=== PATIENT | female | born 1945 | race Caucasian/White ===

== ENCOUNTER 2019-03-22 23:44 | Inpatient (IN) | payer MEDICARE ==
[~2019-03-22] VITALS: Ht 154.9 cm; Wt 149.7 kg
[2019-03-22 23:59] VITALS: BP 154/58
[2019-03-23] VITALS (28 sets, daily range): BP systolic 87–168; BP diastolic 29–71
[2019-03-23] MEDS ORDERED: ECOTRIN325 M1 PO (00:03)
[2019-03-23] MEDS ORDERED: NITROGLYCERIN4.9 GM TL (00:05)
[2019-03-23] MEDS ORDERED: IMDUR SA60 M1 PO (00:05)
[2019-03-23] MEDS ORDERED: METOPROLOL SUCC50 M1 PO (00:06)
[2019-03-23] MEDS ORDERED: LISINOPRIL-HCT1 EACH PO (00:06)
[2019-03-23] MEDS ORDERED: OPTIVE 0.5%-0.915 ML OP (00:06)
[2019-03-23] MEDS ORDERED: RANEXA1000 M1 PO (00:07)
[2019-03-23] MEDS ORDERED: FENOFIBRATE54 MG PO (00:07)
[2019-03-23] MEDS ORDERED: PRAVACHOL40 MG PO (00:07)
[2019-03-23 00:09] LABS: BASO # 0.1 10*3/uL (0.0-0.1); BASO % 0.5 % (0.0-1.0); EOS # 0.3 10*3/uL (0.0-0.4); EOS % 2.6 % (1.0-4.0); HEMATOCRIT 35.7 % (37.0-47.0); HEMOGLOBIN 11.3 g/dl (12.0-16.0); LYMPH % 10.2 % (27.0-41.0); MEAN CORPUSCULAR HGB 30.4 pg (27.0-31.0); MEAN CORPUSCULAR HGB CONC 31.7 g/dl (33.0-37.0); MEAN PLATELET VOLUME 10.8 fl (9.6-12.3); MONO # 1.2 10*3/uL (0.1-1.0); MONO % 11.9 % (3.0-9.0); NEUT # 7.5 10*3/uL (2.3-7.9); NEUT % 74.6 % (47.0-73.0); PLATELET COUNT AUTOMATED 237 10*3/uL (130-400); RED BLOOD COUNT 3.72 10*6/uL (4.10-5.10); RED CELL DISTRI WIDTH 13.1 % (0-14.5); WHITE BLOOD COUNT 10.1 10*3/uL (4.8-10.8)
[2019-03-23] MEDS ORDERED: METOPROLOL TART50 M1 PO (00:09)
--- NOTE | 2019-03-23 00:16 | NUR ---
PATIENT HAS INCREASED REDDNESS TO RLE. THE LEG IS HOT TO TOUCH AND HAS +2 PITTING EDEMA BUT NO DRAINAGE IS NOTED. THE PATIENT STATES THAT SHE FELL A WEEK AGO AND HER PCP STATES THIS CAUSED THE ISSUE. THE PATIENT ALSO HAS A DRESSING AND LOKI WRAP TO LEFT LEG FOR LYMPHEDEMA. THE PATIENT REQUESTED THAT THIS WRAP STAY ON AND INTACTED.
[2019-03-23 00:20] LABS: ACT PARTIAL THROMBO TIME 25.4 SECONDS (20.0-32.1); INTERNATIONAL NORM RATIO 0.9 (2.0-3.5)
[2019-03-23 00:27] LABS: ALBUMIN 2.9 gm/dl (3.1-4.5); CREATININE 1.18 mg/dL (0.55-1.02); POTASSIUM 5.1 mmol/L (3.5-5.1); TOTAL PROTEIN 7.1 gm/dL (6.4-8.2)
--- NOTE | 2019-03-23 00:32 | NUR ---
PATIENT PLACED ON BIPAP IN ER PER DOCTORS ORDER. SETTINGS:12/6 BACK UP RATE OF 8 BPM, OXYGEN 40%. PATIENT SAYS THAT IT IS TOLERABLE AND COMFORTABLE AT THE MOMENT.
[2019-03-23 00:34] LABS: TROPONIN I 2.2 ng/ml (<0.045)
--- NOTE | 2019-03-23 00:34 | NUR ---
TROPONIN 2.200 DR[address] ORELLANA AWARE
--- NOTE | 2019-03-23 03:05 | NUR ---
A 73 YEAR OLD FEMALE PATIENT, admitted to [facility], under the services of ALEXSANDER Beasley DO with a diagnosis of MORBID OBESITY, ELEVATED TROPONIN, ACUTE PULMONARY CONGESTION. Chief complaint is SHORTNES OF BREATH AND MILD CHEST DISCOMFORT-2 DAYS Patient arrived via CAT WITH THIS RN from ER. Monitor applied. Initial assessment completed. Vital signs taken and recorded. See assessment for past medical history, medications and allergies. Patient and/or family oriented to unit. [facility] Clothing/patient valuable form completed. [employer]
--- NOTE | 2019-03-23 03:11 | NUR ---
NITRO DRIP TITRATED AT THIS ITME
--- NOTE | 2019-03-23 03:15 | NUR ---
MORPHINE GIVEN PER DRS ORDERS FOR COMPLAINTS OF SUDDEN ONSET OF CHEST DISCOMFORT AND INCREASED SHORTNESS OF BREATH SINCE MOVING FROM ER CART TO ICU BED. RN WILL MONITOR FOR RELIEF OF SYMPTOMS
--- NOTE | 2019-03-23 03:20 | NUR ---
PATIENTS FRIEND GERRY CALLED REGARDING SWEATER, GERRY STATES SHE TOOK [place], SWEATER AND UNDERWEAR HOME TO WASH THEM. PATIENT AWARE
--- NOTE | 2019-03-23 03:22 | NUR ---
NITRO DRIP TITRATED FOR CONTINUED CHEST PAIN
--- NOTE | 2019-03-23 03:27 | NUR ---
[facility] CALLED REGARDING CONSULT, AWAITING CALL BACK
[2019-03-23] MEDS ORDERED: NOVOLOG MIX 70/33 ML SC ×2 (05:42)
[2019-03-23 06:05] LABS: BASO % 0.4 % (0.0-1.0); EOS # 0.2 10*3/uL (0.0-0.4); EOS % 1.6 % (1.0-4.0); HEMATOCRIT 31.8 % (37.0-47.0); LYMPH # 1.4 10*3/uL (1.3-4.4); LYMPH % 14.9 % (27.0-41.0); MEAN CELL VOLUME 95.2 fl (81.0-99.0); MEAN CORPUSCULAR HGB 29.9 pg (27.0-31.0); MEAN CORPUSCULAR HGB CONC 31.4 g/dl (33.0-37.0); MEAN PLATELET VOLUME 11.5 fl (9.6-12.3); MONO # 1.2 10*3/uL (0.1-1.0); NEUT # 6.8 10*3/uL (2.3-7.9); NEUT % 70.8 % (47.0-73.0); PLATELET COUNT AUTOMATED 242 10*3/uL (130-400); RED BLOOD COUNT 3.34 10*6/uL (4.10-5.10); RED CELL DISTRI WIDTH 13.1 % (0-14.5); WHITE BLOOD COUNT 9.6 10*3/uL (4.8-10.8)
--- NOTE | 2019-03-23 06:07 | NUR ---
CALL OUT TO [facility] REGARDING CONSULT, STATE THAT THEY WILL PLACE PAGE OUT AGAIN AND SOMEONE WILL RETURN CALL
[2019-03-23 06:11] LABS: BUN 19 mg/dl (7-24); CHLORIDE 99 mmol/L (98-107); CHOLESTEROL 147 mg/dL (<200); CREATININE 1.05 mg/dL (0.55-1.02); HDL CHOLESTEROL 54 mg/dl (40-60); LDL CHOLESTEROL 79 mg/dL (9-159); PHOSPHOROUS 2.9 mg/dL (2.5-4.9); POTASSIUM 4.6 mmol/L (3.5-5.1); SODIUM 135 mmol/L (136-145); TRIGLYCERIDES 70 mg/dl (<150); VLDL CHOLESTEROL 14 mg/dL (6-40)
--- NOTE | 2019-03-23 06:52 | NUR ---
PATIENT STATES PAIN HAS LESSENED TO ALMOST NOTHING AT THIS TIME, STATES THAT IT FELT LIKE A "GAS-TYPE CHEST PAIN" RN INSTRUCTED PATIENT TO CALL OUT IF PAIN BEGINS TO WORSEN, AND INSTRUCTED ABOUT NEXT SCHEDULED PAIN MEDICATION DOSE
--- NOTE | 2019-03-23 07:13 | NUR ---
Shift chart check completed.
--- NOTE | 2019-03-23 07:24 | NUR ---
PATIENT MEDICATED WITH MORPHINE PER DRS ORDERS FOR COMPLAINTS OF MIDSTERNAL CHEST PAIN, RATES 6/10. ALSO C/O "GASSY TYPE FEELING IN CHEST" MEDICATED WITH ZOFRAN WELL. RN WILL CONTINUE TO MONITOR
--- NOTE | 2019-03-23 07:33 | NUR ---
DR RENO MADE AWARE OF CONTINUED CHEST PAIN & NTG DRIP
--- NOTE | 2019-03-23 07:55 | NUR ---
PATIENT PLACED ON BIPAP TO SEE IF IT WOULD HELP HER PAIN. PER PATIENT SLIGHT IMPROVEMENT BUT STILL HAS PRESSURE - RATES 5/10. EKG BEING DONE AT BEDSIDE
--- NOTE | 2019-03-23 08:17 | NUR ---
CALL AGAIN PLACED TO ANSWERING SERVICE - THEY CAN NOT FORWARD TO HIS CELL PHONE. REQUESTED STAT CONSULT
--- NOTE | 2019-03-23 08:19 | NUR ---
PHILLIP AWARE OF EKG CHANGES & ELEVATED TROPONIN. CARDIOLOGY CALLED AND THEY REQUESTED TRANSFER OUT
[2019-03-23 08:30] LABS: VITAMIN D, 25-HYDROXY 38.8 ng/mL (30-100)
--- NOTE | 2019-03-23 09:17 | NUR ---
PHERGAN GIVEN FOR EMESIS OF YELLOW STOMACH ACID WITH INCREASE IN PRESSURE BACK UP TO 5/10 (PER PT WAS 3/10) NITRO INCREASED TO 120mcg/MIN
--- NOTE | 2019-03-23 09:45 | NUR ---
RESTING BETTER SINCE MEDICATED - BIPAP BEING PLACED BACK ON
--- NOTE | 2019-03-23 09:48 | NUR ---
PER [place] TO THIS RN THEY WILL NOT HAVE A MEDIC ALL DAY. [facility] CALLED AGAIN BY THIS RN & THEY WILL SEE IF THEY CAN BREAK A CREW FREE & WILL CALL BACK SHORTLY
--- NOTE | 2019-03-23 10:12 | NUR ---
10:00 PT TAKEN OFF OF BIPAP. PLACED ON 50% VENTI MASK. HR 95 RR 28 SPO2 93%
--- NOTE | 2019-03-23 10:17 | NUR ---
PT TOLERATING 50% VENTI MASK SPO2 MAINTIANING 93%. PT PLACED BACK ON BIPAP TIL PT IS TRANSPORTED.
--- NOTE | 2019-03-23 10:54 | NUR ---
PATIENT LEFT VIA LIFETEAM ON VENTURI @ 50%..REPORT CALLED TO LIDA AT [facility] ([phone])
--- NOTE | 2019-03-24 08:15 | NUR ---
Nursing screen received 03/23/19 and patient transferred to tertiary care center before screen completed. [place] OTR/l
== END 2019-03-23 09:27 | disposition short-term general hospital (02) | DRG 871 ==
LOC: ED 23:44 → EDHOLD 03-23 01:54 → ICCU 03-23 02:45
PROVIDERS: Emergency Medicine Emergency Medical Services; Internal Medicine; ADMIT Internal Medicine
PROC: 5A09357 Assistance with Respiratory Ventilation, Less than 24 Consecutive Hours, Continuous Positive Airway Pressure (ICD-10-PCS; principal; 2019-03-23)
DX: A41.9 Sepsis, unspecified organism (principal); J96.01 Acute respiratory failure with hypoxia; I21.4 Non-ST elevation (NSTEMI) myocardial infarction; E43 Unspecified severe protein-calorie malnutrition; E87.1 Hypo-osmolality and hyponatremia; Z68.43 Body mass index [BMI] 50.0-59.9, adult; L03.115 Cellulitis of right lower limb; D50.9 Iron deficiency anemia, unspecified; R65.20 Severe sepsis without septic shock; I50.9 Heart failure, unspecified; E66.01 Morbid (severe) obesity due to excess calories; E11.628 Type 2 diabetes mellitus with other skin complications; I89.0 Lymphedema, not elsewhere classified; M15.0 Primary generalized (osteo)arthritis; I25.10 Atherosclerotic heart disease of native coronary artery without angina pectoris; Z90.49 Acquired absence of other specified parts of digestive tract; Z82.49 Family history of ischemic heart disease and other diseases of the circulatory system; Z83.3 Family history of diabetes mellitus; Z95.1 Presence of aortocoronary bypass graft; Z86.79 Personal history of other diseases of the circulatory system; Z79.82 Long term (current) use of aspirin; Z83.6 Family history of other diseases of the respiratory system

== ENCOUNTER 2019-04-29 21:46 | Emergency (ER) | payer MEDICARE ==
[~2019-04-29 21:46] MED LIST: ECOTRIN325 M1 PO; FENOFIBRATE54 MG PO; IMDUR SA60 M1 PO; LISINOPRIL-HCT1 EACH PO; METOPROLOL SUCC50 M1 PO; METOPROLOL TART50 M1 PO; NITROGLYCERIN4.9 GM TL; NOVOLOG MIX 70/33 ML SC; OPTIVE 0.5%-0.915 ML OP; PRAVACHOL40 MG PO; RANEXA1000 M1 PO
== END 2019-04-29 22:35 | disposition expired ==
LOC: ED 21:46
DX: I46.9 Cardiac arrest, cause unspecified (principal); I50.9 Heart failure, unspecified; I25.10 Atherosclerotic heart disease of native coronary artery without angina pectoris; E66.01 Morbid (severe) obesity due to excess calories; I25.2 Old myocardial infarction; M19.90 Unspecified osteoarthritis, unspecified site; E11.9 Type 2 diabetes mellitus without complications; Z79.82 Long term (current) use of aspirin; Z79.899 Other long term (current) drug therapy; Z79.4 Long term (current) use of insulin; Z95.1 Presence of aortocoronary bypass graft